=== PATIENT | male | born 1970 | race Caucasian/White ===

== ENCOUNTER → 2016-10-18 | Outpatient (CLI) | payer OTHER ==
[~2016-10-18] MED LIST: FENOFIBRATE160 MG PO; LIPITOR20 MG PO; METOPROLOL SUC100 M1 PO; SERTRALINE 50MG50 MG PO
== END ==
LOC: LAB 17:17
DX: R53.82 Chronic fatigue, unspecified (principal)

== ENCOUNTER → 2016-11-14 | Outpatient (CLI) | payer OTHER | LOC: RT 16:35 | DX: R00.2 Palpitations (principal) ==